=== PATIENT | male | born 1995 | race Caucasian/White ===

== ENCOUNTER 2021-03-10 08:43 | Outpatient (CLI) | payer OTHER, SELFPAY ==
[2021-03-10 10:12] LABS: Liquefaction Semen Complete in 30 min. (<30 minutes); Semen Viscosity INCREASED (Not Increa.)
[2021-03-10 10:13] LABS: Semen Color Opaque (Grey-opaque); Semen Immotility 20 %; Semen Morphology Result to Follow; Semen Non-Progressive Motility 20 %; Semen Progressive Motility 60 % (>32); Semen Total Motility 80 (>40% (PM+NP)); Sperm Count 16.4 Mil/mL (60-150 million/mL)
[2021-03-19 10:24] LABS: Fructose, Semen 390 mg/dL (150-600)
== END 2021-03-10 08:44 | disposition home or self-care (01) ==
LOC: CHSLAB 08:49
PROVIDERS: Visit Provider Obstetrics & Gynecology
DX: N46.9 Male infertility, unspecified (principal)
CPT/HCPCS: 82757; 88160; 89320